=== PATIENT | female | born 1945 | race Caucasian/White ===

== ENCOUNTER 2018-01-20 19:23 | Emergency (ER) | payer MEDICARE ==
[2018-01-20 21:12] VITALS: BP 139/65
--- NOTE | 2018-01-20 21:54 | EDM.PDOC ---
ED HPI GENERAL MEDICAL PROBLEM - General Chief Complaint: Chest Pain Stated Complaint: MISSTEPPED HURT RIBS HEAD AND BACK Time Seen by Provider: 01/20/18 19:45 Source of Information: Reports: Patient History Limitations: Reports: No Limitations - History of Present Illness INITIAL COMMENTS - FREE TEXT/NARRATIVE: This lady was at the movie theater and tripped going down the steps inside the theater. She landed on her back and hit her head. No loc. complains of head pain and lots of upper thoracic and right sided thoracic back pain. right, back Pain Score (Numeric/FACES): 7 - Related Data Allergies Allergy/AdvReac Type Severity Reaction Status Date / Time milk Allergy Diarrhea Verified 01/20/18 19:30 shellfish derived Allergy Anaphylactic Verified 01/20/18 19:30 Shock Home Meds: Home Meds Lisinopril [Prinivil] 40 mg PO DAILY 05/19/13 [History] Simvastatin [Zocor] 40 mg PO BEDTIME 05/19/13 [History] amLODIPine Besylate [Amlodipine Besylate] 10 mg PO DAILY 05/19/13 [History] Gabapentin [Neurontin] 100 mg PO DAILY PRN 01/20/18 [History] Past Medical History Cardiovascular History: Reports: High Cholesterol, Hypertension Musculoskeletal History: Reports: Arthritis Neurological History: Reports: Other (See Below) Other Neuro History: muscle spasms Social & Family History - Tobacco Use Smoking Status *Q: Current Every Day Smoker Years of Tobacco use: 45 Packs/Tins Daily: 1 - Caffeine Use Caffeine Use: Reports: Coffee, Soda - Recreational Drug Use Recreational Drug Use: No ED ROS GENERAL - Review of Systems Review Of Systems: ROS reveals no pertinent complaints other than HPI. ED EXAM, GENERAL - Physical Exam Exam: See Below Exam Limited By: No Limitations General Appearance: Alert, WD/WN, No Apparent Distress Eye Exam: Bilateral Eye: EOMI, PERRL Throat/Mouth: Normal Inspection Head: Other (swelling or hematoma right posterior parietal area. large.) Neck: Other ( pain on rom. tender midline) Respiratory/Chest: Lungs Clear, Other (tender area of right scapula and medial) GI/Abdominal: Soft Back Exam: Vertebral Tenderness (thoracic), Other Extremities: Normal Inspection Neurological: Alert, Oriented, CN II-XII Intact, Normal Cognition, No Motor/ Sensory Deficits Skin Exam: Warm, Dry Course - Vital Signs Last Recorded V/S: Last Vital Signs Temp 36.0 C 01/20/18 21:11 Pulse 78 01/20/18 21:11 Resp 16 01/20/18 21:11 BP 139/65 01/20/18 21:11 Pulse Ox 97 01/20/18 21:11 - Orders/Labs/Meds Orders: Active Orders 24 hr Category Date Time Status Cervical Spine wo Cont [CT] Stat Exams 01/20/18 19:59 Taken Chest wo Cont [CT] Stat Exams 01/20/18 19:59 Taken Head wo Cont [CT] Stat Exams 01/20/18 20:01 Taken - Radiology Interpretation Free Text/Narrative:: CT head and C-spine normal. Chest- no fractures. Nodules seen. [employer] will send 2015 film to radiologist and have addendum done. Patient can followup later. I reviewed 2015 ct and looks same. Departure - Departure Time of Disposition: 21:58 Disposition: Home, Self-Care 01 Condition: Fair Clinical Impression: Fall, Minor head injury without loss of consciousness Referrals: Saturnino Read MD [Primary Care Provider] - Additional Instructions: Apply ice to scalp. For pain use norco 5.325 (#12) 1 or 2 tabs every 4-6 hours. May cause sedation that could lead to falls so use with caution. At your next regular appointment ask your doctor to check the CT report from [facility]. The radiologist is going to check your CT from 2014 to see [facility] If so then nothing needs to be done. If they are new however then you will need another CT in 3-6 months. - My Orders Last 24 Hours: My Active Orders 01/20/18 19:59 Cervical Spine wo Cont [CT] Stat Chest wo Cont [CT] Stat 01/20/18 20:01 Head wo Cont [CT] Stat - Assessment/Plan Last 24 Hours: My Active Orders 01/20/18 19:59 Cervical Spine wo Cont [CT] Stat Chest wo Cont [CT] Stat 01/20/18 20:01 Head wo Cont [CT] Stat
== END 2018-01-20 22:30 | disposition home or self-care (01) ==
LOC: JP.ED 19:23
DX: S09.90XA Unspecified injury of head, initial encounter (principal); F17.210 Nicotine dependence, cigarettes, uncomplicated; Z91.013 Allergy to seafood; Z91.011 Allergy to milk products; Z79.899 Other long term (current) drug therapy; W10.9XXA Fall (on) (from) unspecified stairs and steps, initial encounter
CPT/HCPCS: 70450; 71250; 72125; 99284-25

== ENCOUNTER 2020-06-12 09:03 | Emergency (ER) | payer MEDICARE, OTHER ==
[2020-06-12 09:20] VITALS: BP 152/88; PULSE 89
--- NOTE | 2020-06-12 11:47 | EDM.PDOC ---
ED HPI GENERAL MEDICAL PROBLEM - General Chief Complaint: General Stated Complaint: HEAVY CHEST, ACHES IN ARMS Time Seen by Provider: 06/12/20 09:22 Source of Information: Reports: Patient History Limitations: Reports: No Limitations - History of Present Illness INITIAL COMMENTS - FREE TEXT/NARRATIVE: Patient presents for evaluation of vacillating but persistent multiple soft t issue areas of discomfort over the last several weeks. This began sometime around and has primarily been manifested by the new occurrence of trunk and upper extremity migrating areas of muscle pain. She does have areas of aches and cramping in the lower extremities on an ongoing basis. The upper extremity and trunk symptoms are not something that is occurred before. She has tried OTC pain relievers at home with minimal success. She denies fever or chills. No nausea or vomiting. No new rashes. When she first wakes up in the morning, she is very much in pain and needs to "loosen up". Once she is moving the symptoms improved but never go away. She has had fever and chill type feelings but has not taken her temperature. She is long since postmenopausal. She is confused as to why things started and have persisted. Onset: Gradual Duration: Week(s): (3) Location: Reports: Generalized Quality: Reports: Ache Severity: Moderate Improves with: Reports: None Worsens with: Reports: Rest, Movement Context: Denies: Sick Contact Associated Symptoms: Reports: No Other Symptoms - Related Data Allergies Allergy/AdvReac Type Severity Reaction Status Date / Time milk Allergy Diarrhea Verified 06/12/20 09:20 shellfish derived Allergy Anaphylactic Verified 06/12/20 09:20 Shock Home Meds: Home Meds Simvastatin [Zocor] 40 mg PO BEDTIME 05/19/13 [History] amLODIPine Besylate [Amlodipine Besylate] 10 mg PO DAILY 05/19/13 [History] lisinopriL [Prinivil] 40 mg PO DAILY 05/19/13 [History] Omeprazole 20 mg PO DAILY 06/12/20 [History] glipiZIDE [Glipizide ER] 5 mg PO BID 06/12/20 [History] metFORMIN [Glucophage] 500 mg PO DAILY 06/12/20 [History] Past Medical History HEENT History: Reports: Impaired Vision Cardiovascular History: Reports: High Cholesterol, Hypertension Respiratory History: Reports: COPD Gastrointestinal History: Reports: GERD Genitourinary History: Reports: Urinary Incontinence 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: Musculoskeletal History: Reports: Arthritis Neurological History: Reports: Other (See Below) Other Neuro History: muscle spasms Endocrine/Metabolic History: Reports: Diabetes, Type II, Obesity/BMI 30+ Other Endocrine/Metabolic History: oral meds and diet controlled - Infectious Disease History Infectious Disease History: Reports: Chicken Pox, Measles - Past Surgical History Head Surgeries/Procedures: Reports: None HEENT Surgical History: Reports: None Cardiovascular Surgical History: Reports: None Respiratory Surgical History: Reports: None GI Surgical History: Reports: Appendectomy, Cholecystectomy Female Surgical History: Reports: D&C, Hysterectomy Endocrine Surgical History: Reports: None Neurological Surgical History: Reports: None Musculoskeletal Surgical History: Reports: None Dermatological Surgical History: Reports: None Social & Family History - Tobacco Use Tobacco Use Status *Q: Current Every Day Tobacco User Years of Tobacco use: 40 Packs/Tins Daily: 0.5 Used Tobacco, but Quit: No Second Hand Smoke Exposure: No - Caffeine Use Caffeine Use: Reports: Coffee - Recreational Drug Use Recreational Drug Use: No ED ROS GENERAL - Review of Systems Review Of Systems: See Below Constitutional: Reports: Fever, Chills, Malaise. Denies: Diaphoresis HEENT: Reports: No Symptoms Respiratory: Reports: No Symptoms Cardiovascular: Reports: No Symptoms GI/Abdominal: Reports: No Symptoms : Reports: No Symptoms Musculoskeletal: Reports: Muscle Pain. Denies: Joint Pain, Joint Swelling Skin: Reports: No Symptoms ED EXAM, GENERAL - Physical Exam Exam: See Below Free Text/Narrative:: This is an adult female interviewed in room 5. She prefers lights off in the room. There are multiple diffuse tender areas on the extremities in particular in the trunk to a lesser extent. Exam Limited By: No Limitations General Appearance: Alert, Mild Distress Head: Normocephalic Neck: Supple Respiratory/Chest: No Respiratory Distress Cardiovascular: Regular Rate, Rhythm Peripheral Pulses: 4+: Dorsalis Pedis (R) GI/Abdominal: Soft Extremities: Other (There are diffuse areas of muscle tenderness in all extremities. Pain is not severe.). No: Joint Swelling, Increased Warmth, Mottled Neurological: Alert, Oriented. No: Sensory/Motor Deficit Skin Exam: No Rash Course - Vital Signs Last Recorded V/S: Last Vital Signs Temp 36.4 C 06/12/20 09:23 Pulse 89 06/12/20 09:23 Resp 17 06/12/20 09:23 BP 152/88 H 06/12/20 09:23 Pulse Ox 96 06/12/20 09:23 - Orders/Labs/Meds Orders: Active Orders 24 hr Category Date Time Status CORONAVIRUS COVID-19, ENRIQUE Routine Lab 06/12/20 10:28 Received RHEUMATOID ARTHRITIS FACTOR Stat Lab 06/12/20 10:19 Received Labs: Laboratory Tests 06/12/20 06/12/20 Range/Units 10:19 10:19 WBC 10.3 (4.5-11.0) K/uL RBC 5.40 (3.30-5.50) M/uL Hgb 16.1 H (12.0-15.0) g/dL Hct 48.4 H (36.0-48.0) % MCV 90 (80-98) fL MCH 30 (27-31) pg MCHC 33 (32-36) % Plt Count 287 (150-400) K/uL Neut % (Auto) 59 (36-66) % Lymph % (Auto) 30 (24-44) % [place] % (Auto) 10 H (2-6) % Eos % (Auto) 2 (2-4) % Baso % (Auto) 0 (0-1) % ESR 31 H (0-25) mm/hr Sodium 139 L (140-148) mmol/L Potassium 4.3 (3.6-5.2) mmol/L Chloride 100 (100-108) mmol/L Carbon Dioxide 28 (21-32) mmol/L Anion Gap 15.3 H (5.0-14.0) mmol/L BUN 12 (7-18) mg/dL Creatinine 0.8 (0.6-1.0) mg/dL Est Cr Clr Drug Dosing 43.64 mL/min Estimated GFR (MDRD) > 60 (>60) Glucose 169 H (74-106) mg/dL Calcium 9.1 (8.5-10.1) mg/dL Total Bilirubin 0.6 (0.2-1.0) mg/dL AST 25 (15-37) U/L ALT 28 (12-78) U/L Alkaline Phosphatase 91 (46-116) U/L C-Reactive Protein 0.06 (0.0-0.3) mg/dL Total Protein 7.5 (6.4-8.2) g/dL Albumin 3.4 (3.4-5.0) g/dL Globulin 4.1 H (2.3-3.5) g/dL Albumin/Globulin Ratio 0.8 L (1.2-2.2) - Re-Assessments/Exams Free Text/Narrative Re-Assessment/Exam: 06/12/20 17:22 Her sedimentation rate is 31 but otherwise labs are generally good other than a glucose of 169. This could be polymyalgia. It could be a protracted viral syndrome as well. Given the persistence and annoyance of the symptoms, I am going to have her use prednisone 40 mg daily for the next 5 days. She should not use any nonsteroidals while taking prednisone. She may feel energized and her blood glucose is likely to be higher while taking the prednisone. She needs to schedule a clinic recheck time with her doctor for next Monday and lieu of the appointment that she canceled for today. If feeling worse in any way, return to emergency department. 06/12/20 17:22 Departure - Departure Time of Disposition: 11:56 Disposition: Home, Self-Care 01 Condition: Good Clinical Impression: Polymyalgia - Discharge Information Instructions: Musculoskeletal Pain Referrals: Saturnino Read MD [Primary Care Provider] - Forms: ED Department Discharge Additional Instructions: Start prednisone today and take every day until gone. You may use Tylenol 650 mg up to 5 times a day with this. If you check your blood sugar, it will be higher than you are used to while taking prednisone. Schedule a recheck appoin tment with Dr. Read for the end of next week. Return to ER if feeling worse in any way. Sepsis Event Note (ED) - Evaluation Sepsis Screening Result: No Definite Risk - Focused Exam Vital Signs: Vital Signs Temp Pulse Resp BP Pulse Ox 06/12/20 09:23 36.4 C 89 17 152/88 H 96 06/12/20 09:19 36.4 C 89 17 152/88 H 96 - My Orders Last 24 Hours: My Active Orders 06/12/20 10:19 RHEUMATOID ARTHRITIS FACTOR Stat 06/12/20 10:28 CORONAVIRUS COVID-19, ENRIQUE Routine - Assessment/Plan Last 24 Hours: My Active Orders 06/12/20 10:19 RHEUMATOID ARTHRITIS FACTOR Stat 06/12/20 10:28 CORONAVIRUS COVID-19, ENRIQUE Routine
== END 2020-06-12 12:20 | disposition home or self-care (01) ==
LOC: JP.ED 09:03
DX: M35.3 Polymyalgia rheumatica (principal); E78.00 Pure hypercholesterolemia, unspecified; I10 Essential (primary) hypertension; J44.9 Chronic obstructive pulmonary disease, unspecified; K21.9 Gastro-esophageal reflux disease without esophagitis; E11.9 Type 2 diabetes mellitus without complications; E66.9 Obesity, unspecified; F17.210 Nicotine dependence, cigarettes, uncomplicated; Z91.011 Allergy to milk products; Z91.013 Allergy to seafood; Z79.84 Long term (current) use of oral hypoglycemic drugs; Z79.899 Other long term (current) drug therapy; Z68.31 Body mass index [BMI] 31.0-31.9, adult; Z20.828 Contact with and (suspected) exposure to other viral communicable diseases
CPT/HCPCS: 36415; 80053; 85025; 85651; 86140; 86431; 99283; U0002

== ENCOUNTER 2020-09-19 13:04 | Emergency (ER) | payer MEDICARE ==
[2020-09-19 13:41] VITALS: BP 154/66; PULSE 86
[2020-09-19] MEDS ORDERED: Cephalexin 250 MG Cap PO ONE (14:32)
--- NOTE | 2020-09-19 14:39 | EDM.PDOC ---
ED HPI GENERAL MEDICAL PROBLEM - General Chief Complaint: Genitourinary Problem Stated Complaint: UTI? Time Seen by Provider: 09/19/20 14:36 Source of Information: Reports: Patient, Old Records, RN History Limitations: Reports: No Limitations - History of Present Illness INITIAL COMMENTS - FREE TEXT/NARRATIVE: 75 yo female here with dysuria. No fever, flank pain or nausea. Concern about UTI. 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: Reports: Other (see below) (none) - Related Data Allergies Allergy/AdvReac Type Severity Reaction Status Date / Time shellfish derived Allergy Severe Anaphylactic Verified 09/19/20 13:40 Shock milk AdvReac Diarrhea Verified 09/19/20 13:40 Home Meds: Home Meds Simvastatin [Zocor] 40 mg PO BEDTIME 05/19/13 [History] amLODIPine Besylate [Amlodipine Besylate] 10 mg PO DAILY 05/19/13 [History] lisinopriL [Prinivil] 40 mg PO DAILY 05/19/13 [History] Omeprazole 20 mg PO DAILY 06/12/20 [History] glipiZIDE [Glipizide ER] 5 mg PO BID 06/12/20 [History] metFORMIN [Glucophage] 500 mg PO DAILY 06/12/20 [History] Apixaban [Eliquis] 5 mg PO BID 09/19/20 [History] cephALEXin [Cephalexin] 500 mg PO TID #14 tablet 09/19/20 [Rx] Past Medical History HEENT History: Reports: Impaired Vision Cardiovascular History: Reports: High Cholesterol, Hypertension, Stents Respiratory History: Reports: COPD, SOB Gastrointestinal History: Reports: GERD Genitourinary History: Reports: Urinary Incontinence 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: Musculoskeletal History: Reports: Arthritis Neurological History: Reports: Head Trauma, Other (See Below) Other Neuro History: muscle spasms Psychiatric History: Reports: Panic Attack Endocrine/Metabolic History: Reports: Diabetes, Type II, Obesity/BMI 30+ Other Endocrine/Metabolic History: oral meds and diet controlled Hematologic History: Reports: Anticoagulation Therapy - Infectious Disease History Infectious Disease History: Reports: Chicken Pox, Measles - Past Surgical History Head Surgeries/Procedures: Reports: None HEENT Surgical History: Reports: None Cardiovascular Surgical History: Reports: Coronary Artery Stent Respiratory Surgical History: Reports: None GI Surgical History: Reports: Appendectomy, Cholecystectomy Female Surgical History: Reports: D&C, Hysterectomy Endocrine Surgical History: Reports: None Neurological Surgical History: Reports: None Musculoskeletal Surgical History: Reports: None Dermatological Surgical History: Reports: None Social & Family History - Tobacco Use Tobacco Use Status *Q: Current Every Day Tobacco User Years of Tobacco use: 60 Packs/Tins Daily: 0.3 Used Tobacco, but Quit: No - Caffeine Use Caffeine Use: Reports: Coffee, Soda - Recreational Drug Use Recreational Drug Use: No ED ROS GENERAL - Review of Systems Review Of Systems: See Below Constitutional: Reports: No Symptoms GI/Abdominal: Denies: Nausea : Reports: Dysuria. Denies: Flank Pain Skin: Reports: No Symptoms ED EXAM, RENAL/ - Physical Exam Exam: See Below Exam Limited By: No Limitations General Appearance: Alert, WD/WN, No Apparent Distress Back Exam: No: CVA Tenderness (R), CVA Tenderness (L) Neurological: Alert, Oriented, CN II-XII Intact, Normal Cognition, No Mot or/Sensory Deficits Skin Exam: Warm, Dry, Intact, Normal Color, No Rash Course - Vital Signs Last Recorded V/S: Last Vital Signs Temp 36.5 C 09/19/20 13:42 Pulse 86 09/19/20 13:42 Resp 17 09/19/20 13:42 BP 154/66 H 09/19/20 13:42 Pulse Ox 96 09/19/20 13:42 - Orders/Labs/Meds Orders: Active Orders 24 hr Category Date Time Status CULTURE URINE [RM] Stat Lab 09/19/20 14:32 Ordered Labs: Laboratory Tests 09/19/20 Range/Units 14:08 Urine Color Yellow (YELLOW) Urine Appearance Cloudy A (CLEAR) Urine pH 5.5 (5.0-8.0) Ur Specific [place] 1.025 (1.008-1.030) Urine Protein 30 H (NEGATIVE) mg/dL Urine Glucose (UA) 250 H (NEGATIVE) mg/dL Urine Ketones Negative (NEGATIVE) mg/dL Urine Occult Blood Moderate H (NEGATIVE) Urine Nitrite Positive H (NEGATIVE) Urine Bilirubin Negative (NEGATIVE) Urine Urobilinogen 0.2 (0.2-1.0) EU/dL Ur Leukocyte Esterase Negative (NEGATIVE) Urine RBC 5-10 H (0-5) Urine WBC 10-20 H (0-5) Ur Epithelial Cells Few Amorphous Sediment Not seen Urine Bacteria Many Urine Mucus Not seen Meds: Medications Discontinued Medications Generic Name Dose Route Start Last Admin Trade Name Freq PRN Reason Stop Dose Admin Cephalexin 500 mg 09/19/20 14:32 Cephalexin 250 Mg Cap PO 09/19/20 14:33 ONETIME ONE Departure - Departure Time of Disposition: 14:38 Disposition: Home, Self-Care 01 Condition: Good Clinical Impression: Cystitis - Discharge Information *PRESCRIPTION DRUG MONITORING PROGRAM REVIEWED*: Not Applicable *COPY OF PRESCRIPTION DRUG MONITORING REPORT IN PATIENT JUAN DIEGO: Not Applicable Prescriptions: cephALEXin [Cephalexin] 500 mg PO TID #14 tablet Referrals: Saturnino Read MD [Primary Care Provider] - Additional Instructions: Take cephalexin as directed until gone. Check with your provider in 3 days regarding your urine culture. Take AZO as needed for the burning. Drink ample fluids. Sepsis Event Note (ED) - Evaluation Sepsis Screening Result: No Definite Risk - Focused Exam Vital Signs: Vital Signs Temp Pulse Resp BP Pulse Ox 09/19/20 13:42 36.5 C 86 17 154/66 H 96 09/19/20 13:37 36.5 C 86 17 154/66 H 96 - My Orders Last 24 Hours: My Active Orders 09/19/20 14:32 CULTURE URINE [RM] Stat - Assessment/Plan Last 24 Hours: My Active Orders 09/19/20 14:32 CULTURE URINE [RM] Stat
== END 2020-09-19 14:45 | disposition home or self-care (01) ==
LOC: JP.ED 13:04
DX: N30.90 Cystitis, unspecified without hematuria (principal); E78.00 Pure hypercholesterolemia, unspecified; I10 Essential (primary) hypertension; J44.9 Chronic obstructive pulmonary disease, unspecified; K21.9 Gastro-esophageal reflux disease without esophagitis; E11.9 Type 2 diabetes mellitus without complications; E66.9 Obesity, unspecified; Z68.31 Body mass index [BMI] 31.0-31.9, adult; Z79.01 Long term (current) use of anticoagulants; Z79.84 Long term (current) use of oral hypoglycemic drugs; Z79.899 Other long term (current) drug therapy; Z91.011 Allergy to milk products; Z91.013 Allergy to seafood
CPT/HCPCS: 81001; 87086; 87088; 87186; 99283; A9270-GY

== ENCOUNTER 2025-04-12 22:09 | Emergency (ER) | payer MEDICARE ==
[2025-04-12 22:42] LABS: APPEARANCE,URINE TURBID (CLEAR); GLUCOSE,URINE NEGATIVE (NEGATIVE); OCCULT BLOOD,URINE LARGE (NEGATIVE)
[2025-04-12 22:46] VITALS: BP 178/67; PULSE 72
[2025-04-12 22:54] LABS: SQUAMOUS EPITHELIAL CELLS,UR FEW /HPF; UROTHELIAL CELLS,URINE NOT SEEN /HPF
== END 2025-04-12 23:30 | disposition home or self-care (01) ==
LOC: JP.ED 22:09
DX: N39.0 Urinary tract infection, site not specified (principal); I10 Essential (primary) hypertension; E78.00 Pure hypercholesterolemia, unspecified; J44.9 Chronic obstructive pulmonary disease, unspecified; E11.9 Type 2 diabetes mellitus without complications; E66.9 Obesity, unspecified; Z68.31 Body mass index [BMI] 31.0-31.9, adult; Z90.49 Acquired absence of other specified parts of digestive tract; Z90.710 Acquired absence of both cervix and uterus; Z95.5 Presence of coronary angioplasty implant and graft; Z91.0110 Allergy to milk products, unspecified; Z91.013 Allergy to seafood; Z79.01 Long term (current) use of anticoagulants; Z79.899 Other long term (current) drug therapy
CPT/HCPCS: 81001; 87086; 99283

== ENCOUNTER 2025-07-02 10:57 | Emergency (ER) | payer MEDICARE ==
[2025-07-02 11:31] VITALS: BP 146/62; PULSE 81
[2025-07-02 11:56] LABS: APPEARANCE,URINE SLIGHTLY CLOUDY (CLEAR); GLUCOSE,URINE NEGATIVE (NEGATIVE); OCCULT BLOOD,URINE SMALL (NEGATIVE)
[2025-07-02 12:25] LABS: SQUAMOUS EPITHELIAL CELLS,UR FEW /HPF; UROTHELIAL CELLS,URINE NOT SEEN /HPF
== END 2025-07-02 12:41 | disposition home or self-care (01) ==
LOC: JP.ED 10:57
DX: N39.0 Urinary tract infection, site not specified (principal); E78.00 Pure hypercholesterolemia, unspecified; I10 Essential (primary) hypertension; I25.2 Old myocardial infarction; Z95.5 Presence of coronary angioplasty implant and graft; K21.9 Gastro-esophageal reflux disease without esophagitis; E11.9 Type 2 diabetes mellitus without complications; F17.210 Nicotine dependence, cigarettes, uncomplicated; Z91.0110 Allergy to milk products, unspecified; Z91.013 Allergy to seafood; Z79.899 Other long term (current) drug therapy
CPT/HCPCS: 81001; 87086; 99283